=== PATIENT | female | born 1980 | race Caucasian/White ===

== ENCOUNTER 2018-04-28 21:41 | Inpatient (IN) ==
[2018-04-28] MEDS ORDERED: Isovue-370 500 ML INFUS..BTL IV ONE ×2 (22:54→23:09)
--- NOTE | 2018-04-28 22:56 | Emergency Department Note ---
Disposition Clinical Impression: Cellulitis of left leg Disposition: Admitted As Inpatient Condition: Good Time of Disposition: 01:24 Extremity Problem HPI - General Chief complaint: ED Extremity Problem,Nontraumatic Stated complaint: Cellulitis of L Leg/ Sent From [place] Time Seen by Provider: 04/28/18 21:52 Source: patient Mode of arrival: ambulatory Limitations: no limitations Nursing Notes Reviewed: Yes Vital Signs Reviewed: Yes - History of Present Illness HPI Narrative: 38-year-old female otherwise healthy presents to the emergency department with left leg swelling in erythema. Symptoms started approximately 4 days ago. She states on April 13 bumping her left ankle into a rocking chair. I did not leave a snadro in a no obvious injury. About 4 days ago she notice some erythema in swelling to her left leg. She was seen at an outside facility and was evaluated with ultrasound that ruled out deep vein thrombosis and was diagnosed with cellulitis. Patient has been taken Bactrim twice daily since then and over the past 4 days has reported increase swelling redness and pain. She just recently got back from a trip [facility]. She denies any chest pain or shortness of breath. Denies any fever, cough, congestion nausea or vomiting. Denies any new injury or trauma. Denies any history of what clots. Denies any history of hormone use, active cancer or recent surgery. Pt Subjective Complaint: extremity pain, extremity swelling Pain Scale: 6 - Related Data Home Medications Medication Instructions Recorded Confirmed Sulfamethoxazole/Trimeth DS 1 each PO BID 04/28/18 04/28/18 [Bactrim DS] Allergies Allergy/AdvReac Type Severity Reaction Status Date / Time No Known Allergies Allergy Verified 04/28/18 21:46 All systems ED: reviewed and negative except as stated. Review of Systems: As Per HPI Constitutional: Denies: fever, chills Cardiovascular: Denies: chest pain Respiratory: Denies: dyspnea Gastrointestinal: Denies: abdominal pain, nausea, vomiting Musculoskeletal: Denies: back pain, neck pain Integumentary: Reports: rash, abrasion Neurological: Denies: headache, weakness Past Medical History - Past Medical History Attestation: Yes The following information was validated with the patient. Source: patient Medical history: Reports: no medical history Psychiatric history: Reports: no psych history - Social History Smoking Status: Current every day smoker Smokeless Tobacco Status: No Alcohol use: Reports: occasionally Drug use: Reports: none Physical Exam - General Limitations: no limitations General appearance: alert, in no apparent distress - Head Head exam: atraumatic, normocephalic, normal inspection - Eye Eye exam: Present: normal appearance, PERRL, EOMI - ENT ENT exam: normal exam, normal oropharynx, mucous membranes moist - Neck Neck exam: Present: normal inspection, full ROM, trachea midline - Chest Chest inspection: Present: normal inspection, symmetric chest wall rise - Respiratory Respiratory exam: Present: normal lung sounds bilaterally. Absent: respiratory distress, wheezes - Cardiovascular Cardiovascular exam: Present: regular rate, normal rhythm, normal heart sounds. Absent: systolic murmur, diastolic murmur - Abdominal Exam Abdominal exam: Present: soft, Non-Tender, normal bowel sounds. Absent: tenderness, distention, guarding, rebound, rigidity - Extremities Exam Extremities exam: Present: normal capillary refill, pedal edema (Left lower extremity swelling asymmetrical), calf tenderness (Left) - Expanded Lower Extremity Exam Hip/Pelvis exam: Present: normal inspection, full ROM Upper leg exam: Present: normal inspection, full ROM Knee exam: Present: normal inspection, full ROM Lower leg exam: Present: full ROM, tenderness, swelling (Left), erythema ( Extends 1/3rd of the lower leg) Ankle exam: Present: full ROM, tenderness, swelling (Left), erythema, other ( Wound to the medial aspect of the left ankle) Foot/toe exam: Present: full ROM, swelling (Left) 1 - Fluid filled structure, fluctuance Neurovascular/Tendon exam: Present: normal capillary refill. Absent: pulse deficit, motor deficit, sensory deficit, tendon deficit - Neurological Exam Neurological exam: Present: alert, oriented X3 - Psychiatric Psychiatric exam: Present: normal affect, normal mood - Skin Skin exam: Present: warm, intact, erythema - Expanded Skin Exam Type of lesion: Present: rash Description: Present: erythematous, fluctuant, indurated. Absent: discharge 1 - Erythema and edema Course Course Narrative: Patient presents with worsening erythema in swelling to the left lower leg. It is significantly larger than the right. Recent travel from [facility]. Reports a recent venous Doppler ultrasound was negative for deep vein thrombosis. No fever or recent illnesses. Currently on antibiotics. At this time concerning for possible deep vein thrombosis and worsening cellulitis that has failed outpatient therapy as well as underlying deeper infection. Will evaluate with ESR CRP basic labs as well as the CT of her left lower extremity and venous Doppler ultrasound. Fentanyl for pain at this time. Patient will likely require admission - Reevaluation(s) Reevaluation #1: Preliminary venous Doppler ultrasound report given by ultrasonography for negative for deep vein thrombosis. Review for labs do not reveal any leukocytosis. History ESR insecure appears slightly elevated. CT of the lower extremity is spending to evaluate for any worsening infection. Patient will require admission due to failed outpatient therapy for your cellulitis as evident by her phone images and progression of her erythema in swelling. Patient is in agreement with this plan. Will start her on vancomycin. Blood cultures have been obtained. Impression is left lower extremity cellulitis. - Consultations Consultation #1: Spoke with on-call hospitalist antonia Muro to admit for failed outpatient treatment of cellulitis. Currently the CT of the left lower extremity is pending final report. Patient has been started on vancomycin. Vital Signs Temperature 98 F 04/28/18 21:44 Pulse Rate 86 04/28/18 21:44 Respiratory Rate 20 04/28/18 21:44 Blood Pressure 122/82 04/28/18 21:44 O2 Sat by Pulse Oximetry 100 04/28/18 21:44 Temperature 98.2 F 04/29/18 01:21 Pulse Rate 72 04/29/18 01:21 Respiratory Rate 14 04/29/18 01:24 Blood Pressure 115/88 04/29/18 01:24 O2 Sat by Pulse Oximetry 100 04/29/18 01:21 Oxygen Delivery Oxygen Delivery Room Air Extremity Problem, Nontraumati - MDM Narrative Medical decision making narrative: Patient was discussed with my attending physician who agrees with ED management and final disposition. They independently evaluated the patient. Please refer to their attestation to this encounter for additional information. This note was generated by [employer] voice recognition software and as a result grammatical or spelling errors may occur using this program. - Medical Records Medical records reviewed: Yes I reviewed the patient's medical records. - Lab Data Lab results reviewed: Yes I reviewed the patient's lab results. Result diagrams: 04/28/18 23:07 04/28/18 23:07 Lab Results 04/28/18 04/28/18 04/28/18 Range/Units 23:07 23:07 23:07 WBC 8.8 (4.3-11.1) K/mcL RBC 4.62 (3.82-4.97) M/mcL Hgb 13.7 (11.5-15.4) g/dL Hct 40.8 (35.3-44.9) % MCV 88.3 (83.0-100.0) fL MCH 29.7 (28.0-33.3) pg MCHC 33.6 (31.6-35.5) g/dL RDW 13.2 (11.5-14.5) % Plt Count 301 (140-400) K/mcL MPV 9.0 L (9.4-12.4) fL Immature Gran % 0.8 (0-4) % Seg Neutrophils % 58.9 % Lymphocytes % 31.0 % Monocytes % 7.0 % Eosinophils % 1.8 % Basophils % 0.5 % Neutrophils # 5.2 (1.6-8.9) K/mcL Lymphocytes # 2.7 (0.6-4.6) K/mcL Monocytes # 0.6 (0.0-1.3) K/mcL Eosinophils # 0.2 (0.0-0.6) K/mcL Basophils # 0.0 (0.0-0.2) K/mcL ESR 30 H (0-15) mm/hr Sodium 136 (136-145) mEq/L Potassium 3.7 (3.5-5.1) mEq/L Chloride 105 (98-107) mEq/L Carbon Dioxide 24 (23-29) mEq/L BUN 11 (6-20) mg/dL Creatinine 0.66 (0.60-1.20) mg/dL Est GFR ( Amer) > 60 (> 60) Est GFR (Non-Af Amer) > 60 (> 60) BUN/Creatinine Ratio 17 (6-26) Glucose 92 (70-105) mg/dL Calculated Osmolality 281 (280-300) Lactic Acid (0.5-2.2) mmol/L Calcium 8.9 (8.6-10.3) mg/dL C-Reactive Protein 30 H (Less than 10) mg/L 04/28/18 Range/Units 23:18 WBC (4.3-11.1) K/mcL RBC (3.82-4.97) M/mcL Hgb (11.5-15.4) g/dL Hct (35.3-44.9) % MCV (83.0-100.0) fL MCH (28.0-33.3) pg MCHC (31.6-35.5) g/dL RDW (11.5-14.5) % Plt Count (140-400) K/mcL MPV (9.4-12.4) fL Immature Gran % (0-4) % Seg Neutrophils % % Lymphocytes % % Monocytes % % Eosinophils % % Basophils % % Neutrophils # (1.6-8.9) K/mcL Lymphocytes # (0.6-4.6) K/mcL Monocytes # (0.0-1.3) K/mcL Eosinophils # (0.0-0.6) K/mcL Basophils # (0.0-0.2) K/mcL ESR (0-15) mm/hr Sodium (136-145) mEq/L Potassium (3.5-5.1) mEq/L Chloride (98-107) mEq/L Carbon Dioxide (23-29) mEq/L BUN (6-20) mg/dL Creatinine (0.60-1.20) mg/dL Est GFR ( Amer) (> 60) Est GFR (Non-Af Amer) (> 60) BUN/Creatinine Ratio (6-26) Glucose (70-105) mg/dL Calculated Osmolality (280-300) Lactic Acid 0.9 (0.5-2.2) mmol/L Calcium (8.6-10.3) mg/dL C-Reactive Protein (Less than 10) mg/L - Radiology Data Radiology results reviewed: Yes I reviewed the patient's radiology results. Lower Extremity CT 04/28/18 23:09 IMPRESSION: Focal fluid at and just proximal to the medial malleolus, with partial rim enhancement, suggesting that it is on the spectrum between phlegmon and early abscess. Diffuse subcutaneous fat stranding is seen along the lateral aspect of the lower extremity and the dorsum of the foot, most compatible with cellulitis. D/ / Vance Prabhakar MD / Vance Prabhakar MD Interpreting Provider: Vance Prabhakar MD Adela Marr Marcia Female : 1980 [facility]# [id number] 04/28/18 23:38 - Vascular Preliminary by Adela Tellez Acct Num: [id number] : 1980 Patient Age: 38 VENOUS DOPPLER PRELIMINARY REPORT NEGATIVE DVT/SVT LEFT LOWER EXTREMITY. Initialized on 04/28/18 23:38 - END OF NOTE Attestation Statement - Attestation Attestation: I, Zack Molina, examined this patient and my medical decision-making was reviewed with the HUMAN SERVICES CARE SPECIALIST/PA/Advanced Practice Nurse/Resident Physician. I agree with the documented findings, disposition and treatment plan as described except to the extent set forth below. 38-year-old female presents emergency Department with concerns of worsening cellulitis. Patient was recently seen outpatient at urgent care with diagnosis of cellulitis, started on Bactrim which she has taken without improvement of her symptoms. Patient also had an ultrasound at that time which ruled out DVT. Patient states area started after hitting the leg on a rocking chair and continued to worsen from that time. Patient has urinary erythema and induration on exam to the left lower extremity. Patient will be given a IV medications in the emergency department for worsening cellulitis with failure of outpatient antibiotics. Patient comfortable with this plan for admission to the hospital.
[2018-04-28] MEDS ORDERED: *HR* FentaNYL (PF) 100 MCG/2 ML VIAL IVP ONE (22:57)
[2018-04-28 23:20] LABS: Basophils % 0.5 %; Eosinophils # 0.2 K/mcL (0.0-0.6); Eosinophils % 1.8 %; Hematocrit 40.8 % (35.3-44.9); Hemoglobin 13.7 g/dL (11.5-15.4); Immature Granulocytes % 0.8 % (0-4); Lymphocytes # 2.7 K/mcL (0.6-4.6); Mean Corpuscular HGB Conc 33.6 g/dL (31.6-35.5); Mean Corpuscular Hemoglobin 29.7 pg (28.0-33.3); Mean Corpuscular Volume 88.3 fL (83.0-100.0); Monocytes # 0.6 K/mcL (0.0-1.3); Neutrophils # 5.2 K/mcL (1.6-8.9); Platelet Count 301 K/mcL (140-400); Red Blood Count 4.62 M/mcL (3.82-4.97); Red Cell Distribution Width 13.2 % (11.5-14.5); Segmented Neutrophils % 58.9 %
[2018-04-28 23:39] LABS: BUN/Creatinine Ratio 17 (6-26); Blood Urea Nitrogen 11 mg/dL (6-20); C-Reactive Protein 30 mg/L (Less than 10); Calcium 8.9 mg/dL (8.6-10.3); Carbon Dioxide 24 mEq/L (23-29); Chloride 105 mEq/L (98-107); Glucose 92 mg/dL (70-105); Osmolality,Calculated 281 (280-300); Potassium 3.7 mEq/L (3.5-5.1); Sodium 136 mEq/L (136-145); eGFR For Non-African Americans > 60 (> 60)
[2018-04-29] MEDS ORDERED: Vancomycin 1,750 MG in 0.9 % Sodium Chloride 250 ML IVPB ONE (01:01)
[2018-04-29] MEDS ORDERED: *HR* OxyCODONE Immed Rel 5 MG TABLET PO PRN ×3 (02:08→18:56)
[2018-04-29] MEDS ORDERED: traMADol 50 MG TABLET PO PRN (02:08)
[2018-04-29] MEDS ORDERED: Naloxone 0.4 MG/ML INJ IVP PRN ×2 (02:08→18:56)
[2018-04-29] MEDS ORDERED: Acetaminophen 325 MG TABLET PO PRN ×2 (02:08→18:56)
[2018-04-29] MEDS ORDERED: Piperacillin/Tazobactam 3.375 GM in 0.9 % Sodium Chloride Mini Bag 100 ML IVPB ONE (02:12)
--- NOTE | 2018-04-29 02:19 | Internal Med History&Physical ---
Date of Encounter: 04/29/18 Time of Encounter: 02:16 Internal Medicine - H&P: HPI Chief complaint: Leg swelling Admitted From: Home Plans for Post Hospital Care: Home History of present illness: Ms. Marr is a 38 year old female who reports a history of recurrent cellulitis no other comorbidities resenting to the ER with a complaint of left leg swelling and pain. She states that on April 13 she bumped her left ankle into a rocking chair and there was no immediate sandro or signs of obvious injury however a few days later she noted some swelling and redness to the area. He continued to progress and on April 24 she was seen by an outside facility where an ultrasound was done that ruled out DVT and she was diagnosed with cellulitis being placed on TMP-SMX 1 tablet twice a day however in spite of being on it and over the past 4 days inflammatory signs have continued for which she presents today. Evaluation she was seen to have a significantly swollen left malleolar region with surrounding erythema and a CT scan was done which showed subcutaneous inflammation and cellulitis with early signs of an abscess formation. Blood cultures were obtained and she was started on IV vancomycin. On my assessment she was lying comfortably in bed in no acute distress. She states that the pain is significant and she cannot even lay her sheets over her leg due to the tenderness. She denies a history of diabetes. She is an active smoker smoking 1 pack a day and occasional alcohol use. She denies illicit drug use. Denies any history of clots, hormone use, active cancer or recent surgery. Past Med Surg Social Fam HX - Past Medical History Medical history: no medical history Psychiatric history: no psych history - Past Surgical History Additional surgical history: x 2 - Social History Smoking Status: Current every day smoker Smokeless Tobacco Status: No Alcohol use: occasionally Drug use: none Internal Medicine - H&P: Meds Sulfamethoxazole/Trimeth DS [Bactrim DS] 1 each PO BID 04/28/18 [History] 3 Allergy/AdvReac Type Severity Reaction Status Date / Time No Known Allergies Allergy Verified 04/28/18 21:46 All Systems PM: A 10-system review of systems was performed and is negative for pertinent findings except as documented above in the HPI. - Constitutional Vitals: Temp Pulse Resp BP Pulse Ox 98.2 F 72 14 115/88 100 04/29/18 01:21 04/29/18 01:21 04/29/18 01:24 04/29/18 01:24 04/29/18 01:21 Exam: Vitals: Reviewed and afebrile General: Well-developed female lying comfortably in bed in no acute distress Skin: Significant erythema overlying her left malleolar region extending to the mid leg area with a 2 cm dark blister formation over the point of entry; significantly tender to circumferential palpation. HEENT: Moist mucous membranes. No conjunctivae pallor. Neck: No lymphadenopathy. No JVD. No carotid bruits. No palpable thyroid. Chest: Normal thoracic expansion. Normal breath sounds. Clear to auscultation. Heart: Normal S1 & S2; rhythmic. No rubs or murmurs. Abdomen: Non-distended, soft and non-tender to palpation. No peritoneal reaction. Liver is normal in size. Spleen is not palpable. Extremities: Left leg more swollen than the right over the ankle region with inflammatory signs as indicated above. Neurological: Awake, alert and oriented to person, place and time. No focal deficits. Psych: Affect appropriate. Internal Med - H&P Results - Labs CBC & Chem 7: 04/28/18 23:07 04/28/18 23:07 - Assessment and plan (1) Cellulitis of left leg Current Visit: Yes Status: Acute Assessment and plan: Patient is seen to have significant swelling and erythema of the left leg with blister formation at the point of trauma and developing signs of abscess noted on CT scan. One should be concern for staphylococcal and streptococcal infections, more so staff at the formation of abscesses. She has no comorbidities such as diabetes which would be concerning for more polymicrobial infections. We will continue IV vancomycin and administer one empiric dose of Pip/Tazo. IV fluid resuscitation Surgery consult for incision and drainage Rule out DVT with duplex studies. (2) Tobacco dependence Current Visit: Yes Status: Chronic Assessment and plan: Counseled on the need to stop smoking and resources made available. (3) Obesity Current Visit: Yes Status: Acute Assessment and plan: Will benefit from nutrition consultation. Educated on therapeutic lifestyle measures. Qualifiers: Obesity type: due to excess calories Obesity classification: adult class 3 (BMI >= 40) Serious obesity comorbidity presence: without serious comorbidity Body mass index: BMI 40.0-44.9 Qualified Code(s): E66.01 - Morbid (severe) obesity due to excess calories; Z68.41 - Body mass index (BMI) 40.0-44.9, adult (4) DVT prophylaxis Current Visit: Yes Status: Acute Assessment and plan: SubQ heparin ordered. - Time Spent With Patient Total time spent is greater than 50% in coordination of care (as documented) at patient's floor/unit and/or counseling patient: 25 - 35 minutes
[2018-04-29] MEDS: Ringers Solution, Lactated 1,000 ML IVC SCH ×3 (04:23→17:49)
[2018-04-29] MEDS: *HR* Heparin 5,000 UNIT/ML VIAL SQ SCH ×2 (05:32→14:18)
[2018-04-29] MEDS ORDERED: Vancomycin 1,750 MG in 0.9 % Sodium Chloride 250 ML IVPB SCH (09:00)
[2018-04-29] MEDS ORDERED: Piperacillin/Tazobactam 3.375 GM in 0.9 % Sodium Chloride Mini Bag 100 ML IVPB SCH (12:00)
--- NOTE | 2018-04-29 13:57 | Event Note ---
Date of Encounter: 04/29/18 Time of Encounter: 13:54 Evaluated patient earlier this morning. Continues to have swelling and erythema over her left medial malleolus. Denies any fevers or chills. Continues to have pain in left lower extremity. She does have erythema and swelling with open skin wound over the left medial malleolus. Tender to palpation. Surgery consulted. We will follow recommendations. Continue current antibiotics. I added Zosyn for gram-negative coverage.
--- NOTE | 2018-04-29 15:32 | General Surgery Consult Note ---
Date of Encounter: 04/29/18 Time of Encounter: 14:30 History of Present Illness Consult date: 04/29/18 Requesting physician: David Bains History of present illness: 38-year-old female transferred from [facility] after presenting to the emergency department last evening with progressive pain and swelling left medial malleolus. The patient describes traumatizing her left ankle, . While traveling in [place], the patient noticed increased pain and swelling. She was evaluated and treated at a local care facility. TMP/ sulfa was prescribed. The patient has since had progressive pain, erythema, redness, and swelling. On return to this area she presented to the [facility] ED for further evaluation and treatment. CT of the left lower extremity showed focal soft-tissue fluid/edema with partial rim-enhancing consistent with an abscess. It is described to be on a spectrum between phlegmon and early abscess however to clinical examination she clearly has an abscess measuring 2 cm in diameter. No identified osteolytic or osteoblastic bony lesions identified. No periosteal reaction is described. The patient was transferred to [facility] for further evaluation and care. Surgical consultation was placed this morning. Past medical history: Unremarkable Surgical history: 2 Allergies: No known drug allergies Medications: Recently completed 5 day course of Bactrim DS The patient is otherwise on no routine home meds Since transfer to [facility], the patient has been on vancomycin; Zosyn initiated this morning. Social history: Patient is G2, P2; she is a current smoker admitting to 1 pack a day for the last 20 years; she also admits to an occasional alcoholic beverage. She denies any illicit drug use. The patient is employed as a hairdresser Family history: Noncontributory Physical examination: Age-appropriate, obese female in no acute distress. The patient is 1.68 m tall, 117.3 kg, BMI 41.7. Skin: Warm, no obvious jaundice; several cutaneous tattoos are evident Lungs: Clear bilaterally Cardiac: Regular rate, no appreciable murmur Abdomen: Obese, soft, nontender. Active bowel sounds Extremities: Induration, erythema, left medial malleolus with overlying bullae. Distal pulses intact. Sensation intact The extent of the induration approximately 5 cm in diameter. Laboratories: White count 8.8, hemoglobin 13.7, hematocrit 40.8. Platelet count 301,000. Differential within normal limits; ESR 30. C-reactive protein 30 Electrolytes, BUN, creatinine within normal limits Impression: Palpable abscess left medial malleolus likely due to the trauma reported 04/13/2018. This has likely resulted in a undetected break in the skin allowing ingress of bacteria and subsequent development of infection. The patient has not responded to treatment with TMP sulfa. Patient requires incision and drainage of this abscess in addition to continued ATB. Operative cultures will help identify the etiology of this infection and allow directed ATB therapy. All this information is available, continue vancomycin and Zosyn. Surgical incision, drainage, and debridement has been discussed in detail. Risks include hemorrhage, infection, failure to heal, recurrence, injury to adjacent structures such as the saphenous vein and regional nerves and tendons. Surgical consent has been obtained. We will proceed with incision and drainage as soon as possible today. Patient remain nothing by mouth except for medications until the time of surgery. Past Med Surg Social Fam HX - Past Medical History Medical history: no medical history Psychiatric history: no psych history - Past Surgical History Additional surgical history: x 2 - Social History Smoking Status: Current every day smoker Smokeless Tobacco Status: No Alcohol use: occasionally Drug use: none Medications and Allergies Sulfamethoxazole/Trimeth DS [Bactrim DS] 1 tab PO BID 04/28/18 [History] 3 Allergy/AdvReac Type Severity Reaction Status Date / Time No Known Allergies Allergy Verified 04/28/18 21:46 Review of Systems All systems PM: The remainder of the systems were reviewed and are negative General Surgery Exam Initial Vital Signs Temp Pulse Resp BP Pulse Ox 98 F 86 20 122/82 100 04/28/18 21:44 04/28/18 21:44 04/28/18 21:44 04/28/18 21:44 04/28/18 21:44 Exam Initial Vital Signs Temp Pulse Resp BP Pulse Ox 98 F 86 20 122/82 100 04/28/18 21:44 04/28/18 21:44 04/28/18 21:44 04/28/18 21:44 04/28/18 21:44 Results - Labs 04/28/18 23:07 04/28/18 23:07 Abnormal lab results MPV 9.0 fL (9.4-12.4) L 08/06/18 23:07 ESR 30 mm/hr (0-15) H 04/28/18 23:07 C-Reactive Protein 30 mg/L (Less than 10) H 04/28/18 23:07 All other labs normal. Consult Discharge Plan - Plan Referrals: Rickie Pulido MD [Primary Care Provider] -
[2018-04-29] MEDS ORDERED: *HR* Midazolam HCl 2 MG/2 ML VIAL ONE (16:08)
[2018-04-29] MEDS ORDERED: Ketorolac 30 MG/ML VIAL ONE (16:08)
[2018-04-29] MEDS ORDERED: Dexamethasone 4 MG/ML VIAL ONE (16:08)
[2018-04-29] MEDS ORDERED: Lidocaine -MPF 2% 2 ML VIAL ONE (16:08)
[2018-04-29] MEDS ORDERED: Ondansetron 4 MG/2 ML VIAL ONE (16:08)
[2018-04-29] MEDS ORDERED: *HR* FentaNYL (PF) 100 MCG/2 ML VIAL ONE (16:08)
[2018-04-29] MEDS ORDERED: *HR* Propofol 200 MG/20 ML VIAL IVP ONE (16:09)
--- NOTE | 2018-04-29 16:11 | Anesthesia Evaluation PreOp ---
Date of Encounter: 04/29/18 Time of Encounter: 16:08 - Past History Planned Operation: I&D Left Medial Malleolus Cardiac History: Denies any Significant Hx Pulmonary History: Smoker SALES ACCOUNT ASSOCIATE History: Denies Any Significant HX Other Medical History: Denies Any Significant HX Anesthesia History: No Prior Anesthetic Complications, Past Anesthesia (none) : No Test: Negative (04/29/2018) Alcohol Use: occasionally Drug use: none Medications and Allergies Sulfamethoxazole/Trimeth DS [Bactrim DS] 1 tab PO BID 04/28/18 [History] 3 Allergy/AdvReac Type Severity Reaction Status Date / Time No Known Allergies Allergy Verified 04/28/18 21:46 - Meds/Allergy Pre-op Review Medications Reviewed: Yes Allergies Reviewed: Yes Beta Blockers on Current Med List: No Anesthesia Results - Labs 04/28/18 23:07 04/28/18 23:07 Anesthesia Exam Vital Signs/O2 Sat, Most Current Temp Pulse Resp BP Pulse Ox 97.7 F 68 14 103/67 99 04/29/18 14:57 04/29/18 14:57 04/29/18 14:57 04/29/18 14:57 04/29/18 14:57 NPO (# of Hours): > 8 hrs Pain Scale: 0 Pain Scale Used: Numeric (1 - 10) - HEENT Pupil (Motor): Pupils equal, EOMI - SALES ACCOUNT ASSOCIATE LOC: Oriented SALES ACCOUNT ASSOCIATE Motor: Normal RUE, Normal LUE, Normal RLE, Normal LLE, Normal Face SALES ACCOUNT ASSOCIATE Sensory: Normal: RUE, LUE, RLE, LLE, Face - Cardiac Rhythm: Regular Murmur: None JVD: No Carotid Bruit: No - Pulmonary Breath Sounds: bilateral Clear Respiratory Effort: Symmetrical Anesthesia Assess/Plan ASA Score: 2 Modified Ted Scale for Level of Consciousness: Cooperative, oriented, and tranquil Anesthetic Plan: General Autologous Blood: Yes Monitoring Plan: Standard Monitors Recovery Plan: PACU
[2018-04-29] MEDS ORDERED: Albuterol 2.5 MG/3 ML NEBULIZER IH ONE (16:32)
[2018-04-29] MEDS ORDERED: Albuterol 2.5 MG/3 ML NEBULIZER ONE (16:36)
[2018-04-29] MEDS ORDERED: *HR* Promethazine 25 MG/ML VIAL IVP PRN (17:18)
[2018-04-29] MEDS ORDERED: Albuterol 2.5 MG/3 ML NEBULIZER IH PRN (17:18)
[2018-04-29] MEDS: *HR* HYDROmorphone (PF) 1 MG/ML SYRINGE IVP PRN ×2 (17:35→17:47)
--- NOTE | 2018-04-29 17:37 | Operative Note ---
Date of procedure: 04/29/18 Pre-op diagnosis: Abscess left medial malleolus Post-op diagnosis: same Procedure: Incision, drainage, and debridement abscess left medial malleolus Complications: None apparent Anesthesia: other (Laryngeal mask airway) Surgeon: Toño Avendano Was there an physician assistant surgery present: No Estimated blood loss (cc): 25 IV fluids (cc): 800 Specimen: necrotic abscess wall; aerobic and anaerobic cultures Condition: stable Disposition: PACU Procedure in Detail: The patient was brought to the operating room where she was placed supine on the procedure table. The patient was appropriately identified as to person, procedure, and laterality. The accuracy of this information was confirmed by the patient and procedure team. Preoperatively, the extremity was appropriately marked and the opposite extremity stopped. The patient was then anesthetized using laryngeal mask airway under the supervision of Dr. Mason. The extremity was prepped and draped in usual sterile fashion. I identified and my consultation as a bulla overlying the abscess was a triangular-shaped area of necrotic tissue measuring 2 cm in greatest diameter. An oblique skin incision was passed through this triangular-shaped necrotic tissue extended beyond both medial and lateral margins. The necrotic tissue was excised and sent to pathology as necrotic abscess wall tissue. The dissection was slowly extended into the subcutaneous tissue. Purulent drainage was encountered, aerobic and anaerobic cultures of this fluid were obtained. Dissection extended into the subcutaneous tissue with care not to injure any underlying structures such as the saphenous vein or flexor tendons. The wound was copiously irrigated with warm sterile saline using Pulsavac Plus and 3 L saline. The wound was inspected for any additional necrotic tissue. The wound was then packed with quarter inch iodoform gauze. Fluffy gauze followed by conforming stretch gauze was applied to the wound. The patient was then taken to recovery in stable condition. Needle, sponge, and instrument counts were correct at the close of the case.
--- NOTE | 2018-04-29 18:08 | Anesthesia Evaluation Post Op ---
Date of Encounter: 04/29/18 Time of Encounter: 18:07 - Vital Signs Vital Signs: Vital Signs/O2 Sat, Most Current Temp Pulse Resp BP Pulse Ox 98.1 F 54 14 104/69 98 04/29/18 18:04 04/29/18 18:04 04/29/18 18:04 04/29/18 17:54 04/29/18 18:04 - Lungs Lungs: Clear Ascult./Percussion - Airway Airway: Non-obstructed - Cardiovascular Regular Rate - Mental Status Mental Status: Alert & Oriented, Answers Appropriately - Pain Pain Scale: 0 Pain Scale used: Numeric (1 - 10) - Nausea Vomiting Nausea Vomiting: Not Present - Hydration Hydration: Tolerates oral liquids, Has not voided - Discharge PostOp Status: Transfer Patient to floor
[2018-04-29] MEDS ORDERED: *HR* OxyCODONE/APAP 5/325 TABLET PO PRN (18:56)
[2018-04-29] MEDS: Piperacillin/Tazobactam 3.375 GM in 0.9 % Sodium Chloride Mini Bag 100 ML IVPB SCH (22:19)
[2018-04-30 04:53] LABS: Basophils % 0.1 %; Hematocrit 38.8 % (35.3-44.9); Immature Granulocytes % 0.8 % (0-4); Lymphocytes # 1.2 K/mcL (0.6-4.6); Lymphocytes % 10.5 %; Mean Corpuscular HGB Conc 33.5 g/dL (31.6-35.5); Mean Corpuscular Hemoglobin 30.2 pg (28.0-33.3); Mean Corpuscular Volume 90.2 fL (83.0-100.0); Mean Platelet Volume 9.1 fL (9.4-12.4); Monocytes # 0.4 K/mcL (0.0-1.3); Monocytes % 3.5 %; Neutrophils # 9.5 K/mcL (1.6-8.9); Platelet Count 274 K/mcL (140-400); Red Cell Distribution Width 12.8 % (11.5-14.5); Segmented Neutrophils % 85.1 %
[2018-04-30] MEDS: Piperacillin/Tazobactam 3.375 GM in 0.9 % Sodium Chloride Mini Bag 100 ML IVPB SCH ×3 (05:57→21:39)
[2018-04-30] MEDS ORDERED: Ketorolac 30 MG/ML VIAL IM PRN (09:30)
[2018-04-30] MEDS: Ketorolac 30 MG/ML VIAL IVP PRN ×2 (10:21→21:41)
--- NOTE | 2018-04-30 13:21 | Internal Med Progress Note ---
Hospitalist Progress Note - Encounter Date of Encounter: 04/30/18 Time of Encounter: 09:20 - Subjective Interval History: Patient underwent surgery yesterday with incision and drainage of abscess. Continues to have significant pain in the left foot. No fever reported overnight. No nausea or vomiting. Tolerating diet well. - Exam Vitals: Temp Pulse Resp BP Pulse Ox 98.6 F 72 14 95/60 97 04/30/18 07:12 04/30/18 07:12 04/30/18 07:12 04/30/18 07:12 04/30/18 08:29 Exam: General: Patient is alert, no acute distress, oriented x 3 Head: atraumatic, normocephalic, Eye: normal appearance, PERRL, no scleral icterus, no conjunctival injection ENT: mucous membranes moist, normal external ear exam Neck: normal inspection, trachea midline, full ROM, no carotid bruits Chest: normal inspection, symmetric chest rise Respiratory: Good respiratory effort. Normal breath sounds. No wheezing or crackles.. Cardiovascular: Regular rate and rhythm. s1 and s2 No clicks, rubs, gallops, or murmurs. No pedal edema Abdomen: Abdomen is soft, nontender. Bowel sounds are present Musculoskeletal: Erythema and swelling involving the left foot and lower leg improving. Left foot bandaged with dressing. Skin: Erythema involving the left Neuro: Alert oriented x 3 normal cranial nerves, no focal deficits Psych: Patient's affect is normal - Assessment and Plan (1) Cellulitis of left leg Current Visit: Yes Status: Acute Assessment and Plan: With abscess status post incision and drainage. Surgery following. Will follow culture results. Continue vancomycin and Zosyn. Yolanda elevation. Pain control. Moderate risk for complications. (2) Tobacco dependence Current Visit: Yes Status: Chronic (3) Obesity Current Visit: Yes Status: Chronic (4) DVT prophylaxis Current Visit: Yes Status: Acute DVT Prophylaxis: EPCDs as tolerated - Time Spent with Patient Total time spent is greater than 50% in coordination of care (as documented) at patient's floor/unit and/or counseling patient: Internal Medicine: Result - Labs CBC & Chem 7: 04/30/18 04:00 04/28/18 23:07 Labs: Short CBC 04/30/18 Range/Units 04:00 WBC 11.1 (4.3-11.1) K/mcL Hgb 13.0 (11.5-15.4) g/dL Hct 38.8 (35.3-44.9) % Plt Count 274 (140-400) K/mcL Neutrophils # 9.5 H (1.6-8.9) K/mcL - VTE Documentation of Mechanical Device: Intermittent pneumatic compression device Consult Discharge Plan - Plan Referrals: Toño Avendano MD [Non-Partnered Physician] - Rickie Pulido MD [Primary Care Provider] - (3) Obesity Qualifiers: Obesity type: due to excess calories Obesity classification: adult class 3 ( BMI >= 40) Serious obesity comorbidity presence: without serious comorbidity Body mass index: BMI 40.0-44.9 Qualified Code(s): E66.01 - Morbid (severe) obesity due to excess calories; Z68.41 - Body mass index (BMI) 40.0-44.9, adult
--- NOTE | 2018-04-30 13:38 | General Surgery Progress Note ---
Date of Encounter: 04/30/18 Time of Encounter: 13:31 Subjective Narrative: General Surgery : POD #1 Patient complaining of incisional pain as expected. The left foot remains swollen/edematous but without numbness, tingling or paresthesias. Patient remains afebrile, currently 98.6, hemodynamically stable - pulse 72, respirations 14, blood pressure 95/60 (previously 109/78) Swelling and induration left distal extremity diminished. The wound is intact, clean and dry. Dressing changed, packing left intact. Anticipate removing a portion of the packing tomorrow Laboratories: White count 11.1, hemoglobin 13.0, hematocrit 38.8. Neutrophils increased to 9.5 but likely response to surgery Operative cultures: Pending Impression/Plan: Subcutaneous abscess left medial malleolus. Postoperative day #1: status post incision, drainage and debridement. Swelling and induration around the incision improved. Swelling of the left foot process but likely due to the circumferential operative dressing. Acceptable postoperative status. Dressing changed. Begin wound irrigations with half-strength hydrogen peroxide twice a day Continue current IV antibiotics pending culture results Objective Vital Signs - Last 8 Hours Temp Pulse Resp BP Pulse Ox 04/30/18 08:29 97 04/30/18 07:12 98.6 F 72 14 95/60 97 Intake and Output 04/29/18 04/30/18 04/30/18 23:59 07:59 15:59 Intake Total 0 / 0 350 / 350 Output Total 2425 / 2425 3250 / 3250 400 / 400 Balance -2425 / -2425 -2900 / -2900 -400 / -400 Intake: IV Fluids 350 / 350 Zosyn 3.375 GM In 0.9 % Sodium 100 / 100 Chloride (Mini-Bag +) 100 ML @ 25 mls/hr IVPB Q8H RIGO Rx#: [id number] Vancocin 1,250 MG In 0.9 % 250 / 250 Sodium Chloride 250 ML @ 166.67 mls/hr IVPB Q12H RIGO Rx#: [id number] Oral 0 / 0 0 / 0 Output: Urine 2400 / 2400 3250 / 3250 400 / 400 Estimated Blood Loss 25 / 25 Other: Meal NPO Percent of Meal Consumed 0% Weight 117.8 kg Patient Weight 04/30/18 23:59 Weight 117.8 kg - Labs 04/30/18 04:00 04/28/18 23:07 - VTE Documentation of Mechanical Device: Intermittent pneumatic compression device Consult Discharge Plan - Plan Referrals: Toño Avendano MD [Non-Partnered Physician] - Rickie Pulido MD [Primary Care Provider] -
[2018-04-30] MEDS: *HR* OxyCODONE/APAP 5/325 TABLET PO PRN ×2 (14:42→21:42)
[2018-04-30] MEDS: *HR* Heparin 5,000 UNIT/ML VIAL SQ SCH (18:23)
[2018-05-01 05:16] LABS: Basophils # 0.1 K/mcL (0.0-0.2); Basophils % 0.7 %; Eosinophils # 0.1 K/mcL (0.0-0.6); Eosinophils % 1.4 %; Hematocrit 34.1 % (35.3-44.9); Immature Granulocytes % 1.1 % (0-4); Lymphocytes # 3.5 K/mcL (0.6-4.6); Lymphocytes % 41.4 %; Mean Corpuscular HGB Conc 32.8 g/dL (31.6-35.5); Mean Corpuscular Hemoglobin 29.6 pg (28.0-33.3); Mean Platelet Volume 9.2 fL (9.4-12.4); Monocytes # 0.7 K/mcL (0.0-1.3); Monocytes % 7.7 %; Neutrophils # 4.1 K/mcL (1.6-8.9); Platelet Count 230 K/mcL (140-400); Red Blood Count 3.79 M/mcL (3.82-4.97); Red Cell Distribution Width 13.2 % (11.5-14.5); Segmented Neutrophils % 47.7 %
[2018-05-01 05:20] LABS: Hemoglobin 11.2 g/dL (11.5-15.4)
[2018-05-01 05:26] LABS: BUN/Creatinine Ratio 18 (6-26); Blood Urea Nitrogen 11 mg/dL (6-20); Carbon Dioxide 25 mEq/L (23-29); Chloride 108 mEq/L (98-107); Glucose 84 mg/dL (70-105); Osmolality,Calculated 283 (280-300); Potassium 3.6 mEq/L (3.5-5.1); Sodium 137 mEq/L (136-145); eGFR For Non-African Americans > 60 (> 60)
[2018-05-01] MEDS: *HR* Heparin 5,000 UNIT/ML VIAL SQ SCH (06:19)
[2018-05-01] MEDS: Piperacillin/Tazobactam 3.375 GM in 0.9 % Sodium Chloride Mini Bag 100 ML IVPB SCH (06:23)
[2018-05-01 10:44] VITALS: BP 114/7
[2018-05-01] MEDS: Ketorolac 30 MG/ML VIAL IVP PRN (13:07)
[2018-05-01] MEDS: *HR* OxyCODONE/APAP 5/325 TABLET PO PRN (13:07)
--- NOTE | 2018-05-01 13:40 | Discharge Summary ---
- NOTES TO OUTPATIENT PROVIDER Notes to Outpatient Provider: Patient hospitalized with cellulitis and abscess just above her left medial malleolus. Was treated with IV antibiotics and surgery consulted. Patient underwent incision and drainage yesterday. Recovering well. Wound culture growing group G streptococcus. Per surgery recommendations, patient will be discharged today on oral antibiotics. She will follow up with surgery after discharge for further management. Orders not resulted at time of discharge: Pending orders 04/29/18 17:03 Culture,Anaerobic [RM] Routine 04/29/18 17:17 Surgical Pathology [PTH] Routine 05/02/18 02:00 Vancomycin,Trough Timed Date of Encounter: 05/01/18 Time of Encounter: 13:37 - Discharge Diagnosis (1) Cellulitis of left leg Priority: Primary Status: Acute (2) Tobacco dependence Priority: Secondary Status: Chronic (3) Obesity Priority: Secondary Status: Chronic Qualifiers: Obesity type: due to excess calories Obesity classification: adult class 3 (BMI >= 40) Serious obesity comorbidity presence: without serious comorbidity Body mass index: BMI 40.0-44.9 Qualified Code(s): E66.01 - Morbid (severe) obesity due to excess calories; Z68.41 - Body mass index (BMI) 40.0-44.9, adult (4) DVT prophylaxis Priority: Secondary Status: Acute Hospital course: Ms. Marr is a 38 year old female patient with no significant past medical history was hospitalized with cellulitis and abscess just above her left medial malleolus. Was treated with IV antibiotics and surgery consulted. Patient underwent incision and drainage yesterday. Recovering well. Wound culture is growing group G streptococcus. Per surgery recommendations, patient will be discharged today on oral antibiotics. She will follow up with surgery after discharge for further management. Discharge discussed with: patient, nurse, instructional design consultant - Time Spent with Patient Total time spent providing and/or coordinating discharge services: Greater than 30 minutes (35 min) - Discharge Medications Prescriptions: Amoxicillin/Clavulanate [Augmentin] 875 mg PO BIDWM #20 tablet OxyCODONE/APAP 5/325 [Percocet 5/325 MG] 1 each PO Q6H PRN 3 Days #10 tablet PRN Reason: pain not relieved by Tylenol Home Medications: Amoxicillin/Clavulanate [Augmentin] 875 mg PO BIDWM #20 tablet 05/01/18 [Rx] OxyCODONE/APAP 5/325 [Percocet 5/325 MG] 1 each PO Q6H PRN 3 Days #10 tablet 06/10 [Rx] Allergies/Adverse Reactions: 3 Allergy/AdvReac Type Severity Reaction Status Date / Time No Known Allergies Allergy Verified 04/28/18 21:46 Date of admission: 04/29/18 02:15 Primary care physician: Rickie Pulido MD Consults: 04/29/18 05:29 Consult to Surgery [CONS] Routine Consulting Provider: Surgery Leonard Surg - Romana Reason for Consult: patient with LLE abscess. Eval for I & D. Call Completed: Yes 04/29/18 08:50 Consult to Invasive Line Access Team [CONS] Routine Reason for Consult: IV vancomycin superintendent container terminal atb use Line Type: EPIV Discharging clinician: David Bains Anticipated date of discharge: 05/01/18 - Constitutional Vitals: Temp Pulse Resp BP Pulse Ox 98.1 F 63 15 114/7 97 05/01/18 10:42 05/01/18 10:42 05/01/18 10:42 05/01/18 10:42 05/01/18 10:42 General appearance: Present: cooperative, A&O X 3, answers questions appropriately - Respiratory Respiratory exam: Present: CTAB. Absent: accessory muscle use, rales, rhonchi, wheezes - Cardiovascular Cardiovascular exam: Present: RRR, +S1, +S2. Absent: diastolic murmur, gallop, rubs, systolic murmur - GI/Abdominal GI/Abdominal exam: Present: normal bowel sounds, soft, no peritoneal signs. Absent: distended, tenderness - Extremities Exam Extremities exam: Present: warm, radial pulses palpable and symmetrical. Absent : calf tenderness, cyanotic, pedal edema - Patient Status Disposition: Home, Self-Care Condition: Good Functional capacity at discharge: independent ambulation Overall status at discharge: patient is progressing back to baseline - Discharge Instructions Instructions: Cellulitis (DC), Incision and Drainage (DC) Follow Up With: Toño Avendano MD [Non-Partnered Physician] - (On Saturday 05/05) Rickie Pulido MD [Primary Care Provider] - (in 1-2 weeks) Additional Instructions: Follow-up appointments: If there is not an appointment listed below, please call your physician and schedule a follow-up appointment. If you have congestive heart failure and your symptoms return, make an appointment with your physician. Medication List: Carry an up to date list of medications you are taking at all time. We have given you an updated medication list including any new medications that you have been prescribed. Please provide that list to your primary provider Symptoms: If your condition changes or you experience any of the following symptoms, notify your physician immediately: Unusual or worsening pain, fever, persistent nausea and vomiting, bleeding, increase in swelling (especially in your legs), sudden weight gain, extreme dizziness, chest pain, increased drainage or redness from a wound or incision. Go to the emergency department if you experience a problem with breathing. Weights: If you have a history of swelling or shortness of breath, weigh yourself daily and notify your physician if you have a weight gain of two or more pounds in one day or 5 or more pounds in a week. If you experience any of the warning signs for stroke: Sudden numbness or weakness of the face, arm or leg; especially on one side of the body, sudden confusion, trouble speaking or understanding, sudden trouble seeing in one or both eyes, sudden trouble walking, dizziness, loss of balance or coordination, sudden sever headache with no cause; Call 911 or go to the emergency room. Stroke is a medical emergency. Some risk factors for stroke: Age, cigarette smoking, diabetes, excessive alcohol consumption, family history , high blood pressure, overweight, physical inactivity, prior stroke, heart attack, diagnosis of carotid artery stenosis or other artery disease. If you smoke, STOP: Smoking or tobacco use significantly increases your risk of heart and lung disease. Your chance of disease greatly increases if you continue to smoke. For more information, call the [place] tobacco quit line for smoking cessation - QUIT-NOW ( ) - Diet and Activity Activity: increase activity as tolerated Diet: advance to your usual diet - VTE Documentation of Mechanical Device: Intermittent pneumatic compression device
--- NOTE | 2018-05-01 14:07 | General Surgery Progress Note ---
Date of Encounter: 05/01/18 Time of Encounter: 13:30 Subjective Patient reports: feels better, pain is less Narrative: General Surgery - POD #2 Patient feeling better; but swelling diminished. Patient continues afebrile, 98.1, pulse 63, respirations 15, blood pressure 114/70. Dressing removed; wound is clean. Packing removed. No obvious purulence. The left ankle was redressed with dry sterile gauze. Operative cultures: Group G Streptococcus which is usually sensitive to penicillin. Further sensitivities requested of microbiology. Discussed with . The patient is anxious to be discharged home and can be discharged with outpatient follow-up with mi 05/05/18 Patient may shower, wash incision/wound with soap and water Patient may irrigate the wound with half-strength hydrogen peroxide once or twice daily Dry sterile gauze dressing recommended Penicillin containing antibiotic recommended pending final microbiology results. Dr Bains to select the appropriate ATB. Objective Vital Signs - Last 8 Hours Temp Pulse Resp BP Pulse Ox 05/01/18 10:42 98.1 F 63 15 114/7 97 05/01/18 08:25 97 05/01/18 06:36 97.7 F 53 15 97/64 97 Intake and Output 04/30/18 05/01/18 05/01/18 23:59 07:59 15:59 Intake Total 1050 / 1050 950 / 950 220 / 220 Output Total 750 / 750 400 / 400 Balance 1050 / 1050 200 / 200 -180 / -180 Intake: IV Fluids 350 / 350 350 / 350 100 / 100 Zosyn 3.375 GM In 0.9 % Sodium 100 / 100 100 / 100 100 / 100 Chloride (Mini-Bag +) 100 ML @ 25 mls/hr IVPB Q8H RIGO Rx#: [id number] Vancocin 1,500 MG In 0.9 % 250 / 250 250 / 250 Sodium Chloride 250 ML @ 166.67 mls/hr IVPB Q12H RIGO Rx#: [id number] Oral 700 / 700 600 / 600 120 / 120 Output: Urine 750 / 750 400 / 400 Other: Meal Breakfast Percent of Meal Consumed 100% # Voids 2 Weight 116.3 kg Patient Weight 05/01/18 23:59 Weight 116.3 kg - Labs 05/01/18 04:45 05/01/18 04:45 Diabetes panel 05/01/18 Range/Units 04:45 Sodium 137 (136-145) mEq/L Potassium 3.6 (3.5-5.1) mEq/L Chloride 108 H (98-107) mEq/L Carbon Dioxide 25 (23-29) mEq/L BUN 11 (6-20) mg/dL Creatinine 0.60 (0.60-1.20) mg/dL Glucose 84 (70-105) mg/dL Calcium 8.0 L (8.6-10.3) mg/dL Calcium panel 05/01/18 Range/Units 04:45 Calcium 8.0 L (8.6-10.3) mg/dL Pituitary panel 05/01/18 Range/Units 04:45 Sodium 137 (136-145) mEq/L Potassium 3.6 (3.5-5.1) mEq/L Chloride 108 H (98-107) mEq/L Carbon Dioxide 25 (23-29) mEq/L BUN 11 (6-20) mg/dL Creatinine 0.60 (0.60-1.20) mg/dL Glucose 84 (70-105) mg/dL Calcium 8.0 L (8.6-10.3) mg/dL Adrenal panel 05/01/18 Range/Units 04:45 Sodium 137 (136-145) mEq/L Potassium 3.6 (3.5-5.1) mEq/L Chloride 108 H (98-107) mEq/L Carbon Dioxide 25 (23-29) mEq/L BUN 11 (6-20) mg/dL Creatinine 0.60 (0.60-1.20) mg/dL Glucose 84 (70-105) mg/dL Calcium 8.0 L (8.6-10.3) mg/dL - VTE Documentation of Mechanical Device: Intermittent pneumatic compression device Consult Discharge Plan - Plan Instructions: Cellulitis (DC), Incision and Drainage (DC) Referrals: Toño Avendano MD [Non-Partnered Physician] - (On Saturday 05/05) Rickie Pulido MD [Primary Care Provider] - (in 1-2 weeks) Prescriptions: Amoxicillin/Clavulanate [Augmentin] 875 mg PO BIDWM #20 tablet OxyCODONE/APAP 5/325 [Percocet 5/325 MG] 1 each PO Q6H PRN 3 Days #10 tablet PRN Reason: pain not relieved by Tylenol
[2018-05-01] MEDS ORDERED: Aminoglycoside Consult 1 EACH MC ONE (15:07)
== END 2018-05-01 15:08 | disposition home or self-care (01) | DRG 580 ==
LOC: 3ANU 21:41 → EMEROO 21:41 → 3ANU 04-29 01:27 → SUATTDRO 04-29 02:15
PROVIDERS: ADMIT Internal Medicine; ATTEND Internal Medicine

== ENCOUNTER 2021-07-31 08:32 | Inpatient (IN) ==
[2021-07-31] MEDS ORDERED: *HR* Rocuronium Bromide 50 MG/5 ML VIAL ONE ×2 (08:46→11:47)
[2021-07-31] MEDS ORDERED: Lidocaine -MPF 2% 5 ML VIAL ONE (08:46)
[2021-07-31] MEDS ORDERED: *HR* Propofol 200 MG/20 ML VIAL IVP ONE (08:46)
[2021-07-31] MEDS ORDERED: *HR* FentaNYL (PF) 100 MCG/2 ML VIAL ONE (08:53)
[2021-07-31] MEDS ORDERED: *HR* Midazolam HCl 2 MG/2 ML VIAL ONE (08:54)
[2021-07-31] MEDS ORDERED: Ringers Solution, Lactated 1,000 ML IVC SCH (09:00)
[2021-07-31] MEDS ORDERED: CeFAZolin Syr 2,000MG/20 ML 2,000 MG/20 ML SYRINGE IVPB ONE (09:15)
[2021-07-31] MEDS ORDERED: Ondansetron 4 MG/2 ML VIAL IVP PRN ×3 (09:55→14:27)
[2021-07-31] MEDS ORDERED: *HR* OxyCODONE Immed Rel 5 MG TABLET PO PRN (09:55)
[2021-07-31] MEDS ORDERED: *HR* HYDROmorphone PF 0.5 MG/0.5 ML SYRINGE IVP PRN (09:55)
[2021-07-31] MEDS ORDERED: *HR* Morphine Sulfate/PF 10 MG/10 ML AMPUL ONE (10:02)
[2021-07-31] MEDS ORDERED: Acetaminophen IV 1,000 MG/100 ML BAG IVPB ONE (10:03)
[2021-07-31] MEDS ORDERED: Bupivacaine/EPI 1:200k 0.25% 50 ML VIAL ONE (10:04)
[2021-07-31] MEDS ORDERED: *HR* Belladonna Alkaloids/Opium 30 MG RECTAL SUPPOSITORY RC ONE (10:04)
[2021-07-31] MEDS ORDERED: Ondansetron 4 MG/2 ML VIAL ONE (11:02)
[2021-07-31] MEDS ORDERED: Sugammadex Sodium 200 MG/2 ML VIAL IV ONE (12:34)
[2021-07-31] MEDS ORDERED: Ketorolac 30 MG/ML VIAL ONE (12:55)
[2021-07-31] MEDS ORDERED: *HR* OxyCODONE/APAP 5/325 TABLET PO PRN (13:23)
[2021-07-31] MEDS ORDERED: Naloxone 0.4 MG/ML INJ IVP PRN ×2 (13:23→14:29)
[2021-07-31] MEDS ORDERED: *HR* HYDROcodone/Acet 5/325 mg TABLET PO PRN ×2 (13:23→14:28)
[2021-07-31] MEDS ORDERED: Sennosides 8.6 MG TABLET PO PRN ×2 (13:23→14:28)
[2021-07-31] MEDS: Ibuprofen 600 MG TABLET PO SCH (17:15)
[2021-07-31] MEDS ORDERED: Ibuprofen 600 MG TABLET PO SCH (18:00)
[2021-07-31] MEDS: *HR* OxyCODONE/APAP 5/325 TABLET PO PRN (19:42)
[2021-07-31] MEDS ORDERED: traZODone 50 MG TABLET PO SCH (21:00)
[2021-08-01] MEDS: Ibuprofen 600 MG TABLET PO SCH ×2 (01:53→09:21)
[2021-08-01] MEDS: *HR* OxyCODONE/APAP 5/325 TABLET PO PRN ×2 (01:53→09:19)
[2021-08-01 07:32] VITALS: BP 84/52; PULSE 70; TEMP 98.5; O2SAT 96
[2021-08-01] MEDS ORDERED: BuPROPion XL (24 HR) 150 MG TABLET PO SCH (09:00)
[2021-08-01] MEDS ORDERED: Magnesium Oxide 400 MG TABLET PO SCH (09:00)
[2021-08-01 11:16] LABS: Basophils % 0.3 %; Eosinophils # 0.1 K/mcL (0.0-0.6); Eosinophils % 0.6 %; Hematocrit 38.6 % (35.3-44.9); Hemoglobin 12.5 g/dL (11.5-15.4); Immature Granulocytes % 0.5 % (0-4); Lymphocytes # 2.3 K/mcL (0.6-4.6); Lymphocytes % 22.1 %; Mean Corpuscular HGB Conc 32.4 g/dL (31.6-35.5); Mean Corpuscular Hemoglobin 30.5 pg (28.0-33.3); Mean Corpuscular Volume 94.1 fL (83.0-100.0); Mean Platelet Volume 9.2 fL (9.4-12.4); Monocytes # 1.2 K/mcL (0.0-1.3); Monocytes % 11.2 %; Neutrophils # 6.9 K/mcL (1.6-8.9); Platelet Count 264 K/mcL (140-400); Red Cell Distribution Width 12.6 % (11.5-14.5); Segmented Neutrophils % 65.3 %; White Blood Count 10.6 K/mcL (4.3-11.1)
== END 2021-08-01 11:30 | disposition home or self-care (01) | DRG 742 ==
LOC: SAMDAY 08:32 → 1NENUOBS 14:03
PROVIDERS: ADMIT Obstetrics & Gynecology; ATTEND Obstetrics & Gynecology
PROC: GYNLAVH (ICD-10-PCS; 2021-07-31 10:20)